=== PATIENT | female | born 1995 | race Caucasian/White ===

== ENCOUNTER 2017-04-25 20:04 | Inpatient (IN) | payer OTHER ==
[~2017-04-25] VITALS: Ht 157.5 cm; Wt 89.1 kg
[2017-04-25] MEDS ORDERED: AMPICILLIN 2 GM/NS (PMX) 100 ML ONE (20:11)
[2017-04-25] MEDS ORDERED: LACTATED RINGER'S 1,000 ML IV SCH (20:19)
[2017-04-25] MEDS ORDERED: LACTATED RINGER'S 1,000 ML IV PRN (20:22)
[2017-04-25] MEDS ORDERED: METHYLERGONOVINE 0.2 MG INJ IM PRN (20:30)
[2017-04-25] MEDS ORDERED: OXYTOCIN 30 UNITS/LR 500 ML IV PRN (20:30)
[2017-04-25] MEDS ORDERED: BUTORPHANOL 2 MG INJ IV PRN ×2 (20:30)
[2017-04-25] MEDS ORDERED: OXYTOCIN 30 UNITS/LR 500 ML IV SCH ×2 (20:30)
[2017-04-25] MEDS ORDERED: LIDOCAINE 1% (MPF) 30 ML INJ INJ PRN (20:30)
[2017-04-25] MEDS ORDERED: CARBOPROST 250 MCG INJ IM PRN (20:30)
[2017-04-25] MEDS ORDERED: HYDROCODONE/APAP (5/325) TAB PO PRN (20:30)
[2017-04-25] MEDS ORDERED: IBUPROFEN 600 MG TAB PO PRN (20:30)
[2017-04-25] MEDS ORDERED: MISOPROSTOL 200 MCG TAB PR PRN (20:30)
[2017-04-25 20:32] LABS: BASOPHILS % 0.3 % (0.0-2.0); EOSINOPHILS # 0.1 10^3/ul (0.0-0.5); EOSINOPHILS % 1.1 % (0.0-7.0); HEMATOCRIT 36.9 % (37.0-47.0); LYMPHOCYTES % 32.1 % (15.0-51.0); MEAN CORPUSCULAR HEMOGLOBIN 32.1 pg (29.0-33.0); MEAN CORPUSCULAR HGB CONC 35.2 g/dl (32.0-37.0); MEAN CORPUSCULAR VOLUME 91.1 fl (82.0-101.0); MEAN PLATELET VOLUME 11.1 fl (7.4-10.4); MONOCYTE # 0.5 10^3/ul (0.3-0.9); MONOCYTES % 5.9 % (0.0-11.0); NEUTROPHIL # 5.5 10^3/ul (1.6-7.5); NEUTROPHILS % 59.6 % (39.0-77.0); PLATELET COUNT 178 10^3/UL (140-415); RED BLOOD COUNT 4.05 10^6/ul (4.20-5.40); RED CELL DISTRIBUTION WIDTH 13.4 % (11.5-14.5); WHITE BLOOD COUNT 9.2 10^3/ul (4.8-10.8)
[2017-04-25 20:46] LABS: INR 0.89; PT RATIO 0.9
[2017-04-25 20:47] LABS: PARTIAL THROMBOPLASTIN TIME 27.7 Sec (25.0-35.0)
[2017-04-25 20:56] LABS: ALANINE AMINOTRANSFERASE 28 IU/L (13-69); ALBUMIN 3.8 g/dl (3.3-4.9); ALBUMIN/GLOBULIN RATIO 1.05; ALKALINE PHOSPHATASE 234 IU/L (42-121); ANION GAP 15 (8-16); ASPARTATE AMINO TRANSFERASE 24 IU/L (15-46); BILIRUBIN,INDIRECT 0.3 mg/dl (0-1.1); BILIRUBIN,TOTAL 0.3 mg/dl (0.2-1.3); BLOOD UREA NITROGEN 11 mg/dl (7-20); CALCIUM 9.7 mg/dl (8.4-10.2); CARBON DIOXIDE 23 mmol/L (21-31); CHLORIDE 105 mmol/L (97-110); CREATININE 0.67 mg/dl (0.44-1.00); GLUCOSE 101 mg/dl (70-220); POTASSIUM 3.7 mmol/L (3.5-5.1); SODIUM 139 mmol/L (135-144); TOTAL PROTEIN 7.4 g/dl (6.1-8.1)
[2017-04-25] MEDS ORDERED: AMPICILLIN 2 GM/NS (PMX) 100 ML IVPB ONE (21:00)
[2017-04-25 21:25] VITALS: Ht 157.5 cm; Wt 89.1 kg
[2017-04-25] MEDS ORDERED: PREN-93 PO (21:26)
--- NOTE | 2017-04-25 22:52 | HP ---
Date/Time of Note Date/Time of Note DATE: 04/25/17 TIME: 22:47 OB - History Hx of Present Free Text/Dictation 21yo without significant past medical or surgical history presents at 39 +5 with painful contractions since 1800. Vaginal bleeding started after contractions. Pt reports normal FM and denies LOF. care with Dr. Shelley. Pt reports care has been without complications. Estimated Due Date: Apr 27, 2017 : 4 Para: 1 Therapeutic : 2 Care: Good Care Obstetrical Complications: None Medical Complications: None Past Family/Social History * Past Medical, Surgical, Family and Obstetric Histories reviewed from chart. Blood Type: B+ Rubella: immune RPR/VDRL: Negative GBS Status: Positive (04/04/17) HBsAG: Negative OB Admission Exam Physical Exam HEENT: WNL Heart: Rhythm Normal Lungs: Clear Abdomen: WNL (gravid) Extremities: Normal Cervical Dilatation: 9cm Effacement: Other (90%) Station: 0 Membranes: Intact Heart Rate: 140's Accelerations: Accelerations Present Decelerations: No Decelerations Varibility: Moderate Contractions on Admission: < 5 Minutes Apart Intensity: Firm Last 72 hours Lab Results CBC & BMP 04/25/17 20:15 Liver Function Test 04/25/17 20:15 Alanine Aminotransferase (ALT/SGPT) 28 Albumin 3.8 Alkaline Phosphatase 234 H Aspartate Amino Transf (AST/SGOT) 24 Direct Bilirubin 0.00 Total Protein 7.4 OB Assessment/Plan Reason for admission: active labor Plan: Expectant Management Other plan: GBS ppx indicated Anticipate TISHA MARTINEZ MD Apr 25, 2017 22:52
--- NOTE | 2017-04-25 22:59 | LDN ---
Date/Time of Note Date/Time of Note DATE: 04/25/17 TIME: 22:52 Delivery Summary Pt pushed without anesthesia to a precipitous of a liveborn male weighing 3330g with Apgars of 9 and 9 at 1 and 5 min respectively. Easy delivery of the head through thin meconium, followed by anterior left shoulder, posterior shoulder and the remainder of the body. Vigorous and crying placed on mother's abdomen and bulb suctioned. Following an intentional delay, the cord was doubly clamped and cut. Standard Pitocin was administered and cord blood was collected. An intact 3VC delivered shortly thereafter. Fundal massage revealed a firm fundus. Inspection of the vagina and perineum revealed a 1st degree perineal laceration and R labial laceration repaired under local anesthesia with 3-0 Vicryl and hemostasis achieved. Mother and infant recovering well in LDR. Of note, [employer] was initially called for delivery, however pt pushed for >1hr with no progress and thus plan was for epidural prior to delivery. Pt then precipitously delivered prior to [employer] being called back to the patient's room. On arrival of RN, vigorous, crying with good color. Weeks of Gestation 39+5 Placenta Delivered: Spontaneously Meconium: Light (s/p AROM) Episiotomy: No Perineal laceration: 1 Laceration repair: Yes, 3-0 Vicryl Anesthesia type: Local Sponge & Needle done & correct: Yes All needle counts correct: Yes Any foreign bodies felt in the: No Problems: Infant Delivery Information Sex Infant Sex: male Apgars 1 Minute: 9 5 Minute: 9 Suctioning Nose & mouth suctioned at gloria: No Delee suction performed: No Umbilical Cord Umbilical cord with: 3 Vessels Cord presentations: no nuchal cord Cord Blood was obtained: Yes Mother & Baby Disposition Disposition Mom & Baby to Maternity; Good: Yes Baby to NICU: No TISHA MARTINEZ MD Apr 25, 2017 22:59
[2017-04-26] VITALS (7 sets, daily range): BP systolic 101–132; BP diastolic 55–77; PULSE 58–74; RESP 18–20
[2017-04-26] MEDS ORDERED: AMPICILLIN 1 GM/NS (PMX) 50 ML IVPB SCH (01:00)
[2017-04-26] MEDS ORDERED: LACTATED RINGER'S 1,000 ML IV* SCH (01:09)
[2017-04-26] MEDS ORDERED: DIBUCAINE 1% 30 GM OINT PR PRN (01:30)
[2017-04-26] MEDS ORDERED: WITCH HAZEL/GLYCERIN PAD PR PRN (01:30)
[2017-04-26] MEDS ORDERED: SENNA/DOCUSATE NA (8.6MG/50MG) TAB PO PRN (01:30)
[2017-04-26] MEDS ORDERED: BENZOCAINE 20% 56 ML SPRAY TOP PRN (01:30)
[2017-04-26] MEDS ORDERED: LANOLIN 7 GM TUBE TOP PRN (01:30)
[2017-04-26] MEDS ORDERED: ACETAMINOPHEN 325 MG TAB PO PRN (01:30)
[2017-04-26] MEDS ORDERED: CARBOPROST 250 MCG INJ IM PRN (01:30)
[2017-04-26] MEDS ORDERED: DIPHENHYDRAMINE 50 MG INJ IV PRN (01:30)
[2017-04-26] MEDS ORDERED: OXYTOCIN 30 UNITS/LR 500 ML IV PRN (01:30)
[2017-04-26] MEDS ORDERED: MISOPROSTOL 200 MCG TAB PR PRN (01:30)
[2017-04-26] MEDS ORDERED: ONDANSETRON 4 MG INJ IV PRN (01:30)
[2017-04-26] MEDS ORDERED: METHYLERGONOVINE 0.2 MG INJ IM PRN (01:30)
--- NOTE | 2017-04-26 03:06 | TRIAGE ---
OB Triage Datetime Report Generated by CPN: 04/26/2017 03:06 Datetime: 04/26/2017 00:05 Stage of : Recovery Pain Assessment Pain Scale: 7 Pain Presence: Intermittent Pain Type: Cramping Pain Location: Abdomen; Back Pain Goal: 4 Datetime: 04/25/2017 23:44 Stage of : Recovery Pain Assessment Pain Scale: 7 Pain Presence: Intermittent Pain Type: Cramping Pain Location: Abdomen; Back Pain Goal: 4 Datetime: 04/25/2017 23:29 Stage of : Recovery Pain Assessment Pain Scale: 7 Pain Presence: Intermittent Pain Type: Cramping Pain Location: Abdomen; Back Pain Goal: 4 Datetime: 04/25/2017 23:14 Stage of : Recovery Pain Assessment Pain Scale: 7 Pain Presence: Intermittent Pain Type: Cramping Pain Location: Abdomen; Back Pain Goal: 4 Pain Relief Measures: Pain Medication Given (Annotations: MOTRIN 600 MG PO AT 2316, APPLE JUICE AN D WATER PROVIDED) Datetime: 04/25/2017 22:59 Stage of : Recovery Pain Assessment Pain Scale: 7 Pain Presence: Intermittent Pain Type: Cramping Pain Location: Abdomen; Back Pain Goal: 4 Pain Assessment Comments: PT. WANTS PAIN MED FOR CRAMPING NOW, BUT NOT TOO STRONG AGREED ON MOTRIN 600MG Datetime: 04/25/2017 22:51 Time of Arrival: 04/25/2017 20:05 EGA: 39.5 Datetime: 04/25/2017 22:44 Stage of : Recovery Pain Assessment Pain Scale: 7 Pain Presence: Intermittent Pain Type: Cramping Pain Location: Abdomen; Back Pain Goal: 4 Datetime: 04/25/2017 22:30 Stage of : Recovery Assessment Type: Admission Assessment Vaginal Bleeding: None Maternal Assessment Level of Consciousness: Fully Conscious Headache: Denies Blurred Vision: No Respiratory Effort: Unlabored; Regular Rhythm; Equal Expansion Nausea/Vomiting: Denies RUQ Epigastric Pain: Denies Lower Extremities Edema: None Upper Extremities Edema: None Facial Edema: None Fall Risk Assessment History of Falling: (0) No Secondary Diagnosis: (0) No Ambulatory Aid: (0) Bedrest/Nurse Assist Gait: (0) Normal/Bedrest/Immobile Mental Status: (0) Oriented to Own Ability Pain Assessment Pain Scale: 7 Pain Presence: Intermittent Pain Type: Cramping Pain Location: Abdomen; Back Pain Goal: 4 Datetime: 04/25/2017 22:14 Stage of : Recovery Temperature Route: Oral Datetime: 04/25/2017 21:45 Stage of : Labor Labor Evaluation Frequency: 2 Monitor Mode: External Duration (sec)2399: 60-90 Quality: Strong Pattern: Normal: <= 5 Contractions in 10 Minutes Resting Tone [place]: Relaxed Heart Rate FHR Baseline Rate: 140 Monitor Mode: External US Variability: Moderate 6-25 bpm Accelerations: 15X15 Decelerations: Early Category: Category I Pain Assessment Pain Scale: 10 Pain Presence: Intermittent Pain Type: Sharp; Pressure Pain Location: Abdomen; Back Pain Goal: 5 Pain Relief Measures: Comfort Measures Datetime: 04/25/2017 21:18 Membrane Status: Intact Datetime: 04/25/2017 21:00 Stage of : Labor Labor Evaluation Frequency: 2-3 Monitor Mode: External Duration (sec)2399: 60-90 Quality: Strong Pattern: Normal: <= 5 Contractions in 10 Minutes Resting Tone [place]: Relaxed Heart Rate FHR Baseline Rate: 150 Monitor Mode: External US Variability: Moderate 6-25 bpm Accelerations: 15X15 Decelerations: Early Category: Category I Pain Assessment Pain Scale: 9 Pain Presence: Intermittent Pain Type: Sharp; Pressure Pain Location: Abdomen; Back Pain Goal: 5 Pain Relief Measures: Comfort Measures Datetime: 04/25/2017 20:45 Stage of : Labor Labor Evaluation Frequency: 2-3 Monitor Mode: External Duration (sec)2399: 60-90 Quality: Strong Pattern: Normal: <= 5 Contractions in 10 Minutes Resting Tone [place]: Relaxed Heart Rate FHR Baseline Rate: 150 Monitor Mode: External US Variability: Moderate 6-25 bpm Accelerations: 15X15 Decelerations: Early Category: Category I Pain Assessment Pain Scale: 9 Pain Presence: Intermittent Pain Type: Sharp; Pressure Pain Location: Abdomen; Back Pain Goal: 5 Pain Relief Measures: Comfort Measures Datetime: 04/25/2017 20:30 Membrane Status: Ruptured Membranes Rupture Method: Artificial Amniotic Fluid Color: Light Meconium Amniotic Fluid Amount: Moderate Datetime: 04/25/2017 20:18 EGA: 39.5 Membranes Ruptured Date/Time: 04/25/2017 20:30 Membranes Rupture Method: Artificial Amniotic Fluid Color: Light Meconium Amniotic Fluid Amount: Moderate Amniotic Fluid Odor: None Presentation 'A': Cephalic Datetime: 04/25/2017 20:13 Vaginal Exam Dilatation (cms): 9.5 Effacement (%): 90 Station: 0 Exam By: Robonson Datetime: 04/25/2017 20:09 Stage of : Labor Datetime: 04/25/2017 20:00 Stage of : OB Triage Time of Arrival: 04/25/2017 19:50 Arrived By: Wheelchair Arrived From: Home Chief Complaint: CONTRACTIONS Movement: Present Contractions: Denies/Absent Rupture of Membranes: Denies Vaginal Bleeding: None Vaginal Discharge: Denies Recent Sexual Intercouse: Denies Abdominal Trauma: Not Applicable Time Provider Notified: 04/26/2017 20:05 Provider Notified: DR MARTINEZ Initial Plan: CALL SHEN FRANCOIS Maternal Assessment Level of Consciousness: Fully Conscious DTR's/Clonus: DTRs 2+; No Clonus Headache: Denies Blurred Vision: No Respiratory Effort: Unlabored; Regular Rhythm; Equal Expansion Breath Sounds, Left: Clear and Equal Breath Sounds, Right: Clear and Equal Nausea/Vomiting: Denies RUQ Epigastric Pain: Denies Lower Extremities Edema: None Degree: None Upper Extremities Edema: None Degree: None Facial Edema: None Temperature Route: Oral Fall Risk Assessment History of Falling: (0) No Secondary Diagnosis: (0) No Ambulatory Aid: (0) Bedrest/Nurse Assist IV Therapy: (0) No Gait: (0) Normal/Bedrest/Immobile Mental Status: (0) Oriented to Own Ability Fall Score: 0 Fall Risk Score Definition: No Risk: No action required Pain Assessment Pain Scale: 9 Pain Presence: Intermittent Pain Type: Contraction Pain Location: Abdomen; Back
[2017-04-26] MEDS: IBUPROFEN 600 MG TAB PO SCH ×3 (06:13→17:39)
[2017-04-26 11:38] LABS: BASOPHILS % 0.2 % (0.0-2.0); EOSINOPHILS # 0.1 10^3/ul (0.0-0.5); EOSINOPHILS % 0.7 % (0.0-7.0); HEMATOCRIT 33.5 % (37.0-47.0); HEMOGLOBIN 11.4 g/dl (12.0-16.0); LYMPHOCYTES # 2.9 10^3/ul (0.8-2.9); LYMPHOCYTES % 24.2 % (15.0-51.0); MEAN CORPUSCULAR HEMOGLOBIN 31.8 pg (29.0-33.0); MEAN CORPUSCULAR VOLUME 93.6 fl (82.0-101.0); MEAN PLATELET VOLUME 11.6 fl (7.4-10.4); MONOCYTE # 0.8 10^3/ul (0.3-0.9); MONOCYTES % 6.4 % (0.0-11.0); NEUTROPHIL # 8.2 10^3/ul (1.6-7.5); NEUTROPHILS % 67.8 % (39.0-77.0); PLATELET COUNT 136 10^3/UL (140-415); RED BLOOD COUNT 3.58 10^6/ul (4.20-5.40); RED CELL DISTRIBUTION WIDTH 13.6 % (11.5-14.5); WHITE BLOOD COUNT 12.1 10^3/ul (4.8-10.8)
[2017-04-26] MEDS ORDERED: INFLUENZA VIRUS VACCINE 0.5 ML SYG IM* ONE (13:00)
--- NOTE | 2017-04-26 18:18 | PN ---
Date/Time of Note Date/Time of Note DATE: 04/26/17 TIME: 18:11 OB Subjective Subjective Subjective Denies any complaint, Ambulating, vaginal bleeding moderate. urinated without any complaint, OB Objective Objective Objective GA: A&O, NAD Abdomen, Soft, Non tender Fundus at the level of umbilicus, non tender Breasts; No fullness, no evidence of fissure, or mastitis.no engorgement Extremities: no calf tenderness, no click, no edema Hematology - 72 Hrs Test 04/25/17 20:15 04/26/17 10:32 White Blood Count 9.210^3/ul (4.8-10.8) 12.110^3/ul (4.8-10.8) #H Red Blood Count 4.0510^6/ul (4.20-5.40) L 3.5810^6/ul (4.20-5.40) L Hemoglobin 13.0g/dl (12.0-16.0) 11.4g/dl (12.0-16.0) L Hematocrit 36.9% (37.0-47.0) L 33.5% (37.0-47.0) L Mean Corpuscular Volume 91.1fl (82.0-101.0) 93.6fl (82.0-101.0) Mean Corpuscular Hemoglobin 32.1pg (29.0-33.0) 31.8pg (29.0-33.0) Mean Corpuscular Hemoglobin Concent 35.2g/dl (32.0-37.0) 34.0g/dl (32.0-37.0) Red Cell Distribution Width 13.4% (11.5-14.5) 13.6% (11.5-14.5) Platelet Count 33633^3/UL (140-415) 74732^3/UL (140-415) #L Mean Platelet Volume 11.1fl (7.4-10.4) H 11.6fl (7.4-10.4) H Neutrophils % 59.6% (39.0-77.0) 67.8% (39.0-77.0) Lymphocytes % 32.1% (15.0-51.0) 24.2% (15.0-51.0) Monocytes % 5.9% (0.0-11.0) 6.4% (0.0-11.0) Eosinophils % 1.1% (0.0-7.0) 0.7% (0.0-7.0) Basophils % 0.3% (0.0-2.0) 0.2% (0.0-2.0) Nucleated Red Blood Cells % 0.0/100WBC (0.0-0.0) 0.0/100WBC (0.0-0.0) Neutrophils # 5.510^3/ul (1.6-7.5) 8.210^3/ul (1.6-7.5) H Lymphocytes # 3.010^3/ul (0.8-2.9) H 2.910^3/ul (0.8-2.9) Monocytes # 0.510^3/ul (0.3-0.9) 0.810^3/ul (0.3-0.9) Eosinophils # 0.110^3/ul (0.0-0.5) 0.110^3/ul (0.0-0.5) Basophils # 0.010^3/ul (0.0-0.1) 0.010^3/ul (0.0-0.1) Nucleated Red Blood Cells # 0.010^3/ul (0.0-0.0) 0.010^3/ul (0.0-0.0) Chemistry Test 04/25/17 20:15 Sodium Level 139mmol/L (135-144) Potassium Level 3.7mmol/L (3.5-5.1) Chloride Level 105mmol/L (97-110) Carbon Dioxide Level 23mmol/L (21-31) Anion Gap 15 (8-16) Blood Urea Nitrogen 11mg/dl (7-20) Creatinine 0.67mg/dl (0.44-1.00) Glucose Level 101mg/dl (70-220) Calcium Level 9.7mg/dl (8.4-10.2) Total Bilirubin 0.3mg/dl (0.2-1.3) Direct Bilirubin 0.00mg/dl (0.00-0.20) Indirect Bilirubin 0.3mg/dl (0-1.1) Aspartate Amino Transf (AST/SGOT) 24IU/L (15-46) Alanine Aminotransferase (ALT/SGPT) 28IU/L (13-69) Alkaline Phosphatase 234IU/L (42-121) H Total Protein 7.4g/dl (6.1-8.1) Albumin 3.8g/dl (3.3-4.9) Globulin 3.60g/dl (1.3-3.2) H Albumin/Globulin Ratio 1.05 OB Assessment/Plan Other Assessment: s/p PPD #1 Lats PNC UDS negative Doing well Routine post care Anticipate DC home RHIANNON Hooper MD Apr 26, 2017 18:18
[2017-04-27] MEDS: IBUPROFEN 600 MG TAB PO SCH ×4 (00:07→17:18)
[2017-04-27 04:00] VITALS: BP 111/60; PULSE 62; RESP 19
[2017-04-27 07:20] VITALS: BP 115/66; PULSE 71; RESP 19
[2017-04-27] MEDS ORDERED: DIPHTH/TET/ACEL PERTUSS (ADULT) 0.5 ML VIAL IM* ONE (09:00)
--- NOTE | 2017-04-27 10:34 | DS ---
Date/Time of Note Date/Time of Note DATE: 04/27/17 TIME: 10:27 Obstetrical Discharge Record Final Diagnosis Final Diagnosis: Term delivered Vaginal Delivery Obstetrical Delivery: Spontaneous, Laceration, Repaired (first degree laceration repaired by 3 0 chromic .) Complications Rupture of Membranes: No Condition on Discharge Physical Assessment Last Vitals: Laboratory Tests Test 04/26/17 10:32 White Blood Count 12.110^3/ul Red Blood Count 3.5810^6/ul Hemoglobin 11.4g/dl Hematocrit 33.5% Mean Corpuscular Volume 93.6fl Mean Corpuscular Hemoglobin 31.8pg Mean Corpuscular Hemoglobin Concent 34.0g/dl Red Cell Distribution Width 13.6% Platelet Count 33732^3/UL Mean Platelet Volume 11.6fl Neutrophils % 67.8% Lymphocytes % 24.2% Monocytes % 6.4% Eosinophils % 0.7% Basophils % 0.2% Nucleated Red Blood Cells % 0.0/100WBC Neutrophils # 8.210^3/ul Lymphocytes # 2.910^3/ul Monocytes # 0.810^3/ul Eosinophils # 0.110^3/ul Basophils # 0.010^3/ul Nucleated Red Blood Cells # 0.010^3/ul Current Medications Medications (Trade) Dose Ordered Sig/Steffanie Route PRN Reason Start Time Stop Time Status Last Admin Dose Admin Ampicillin 100 ml @ ud STK-MED ONCE .ROUTE 04/25/17 20:11 04/25/17 20:12 DC Lactated Ringer's (Lr) 1,000 ml @ 125 mls/hr Q8H IV 04/25/17 20:19 04/26/17 01:16 DC 04/25/17 20:36 Butorphanol Tartrate (Stadol) 1 mg Q2H PRN IV PAIN 04/25/17 20:30 04/26/17 01:16 DC Butorphanol Tartrate (Stadol) 2 mg Q2H PRN IV PAIN 04/25/17 20:30 04/26/17 01:16 DC Lidocaine 30 ml 30 ml ONCE PRN INJ EPISIOTOMY/TEARING 04/25/17 20:30 04/26/17 01:16 DC Oxytocin/Lactated Ringer's 500 ml @ 125 mls/hr ONCE -MAY REPEAT X1 IV 04/25/17 20:30 04/26/17 01:16 DC 04/25/17 22:30 Oxytocin/Lactated Ringer's 500 ml @ 125 mls/hr ONCE IV 04/25/17 20:30 04/26/17 02:45 Ibuprofen (Motrin) 600 mg ONCE PRN PO Mild Pain (Pain Score 1-3) 04/25/17 20:30 04/26/17 01:16 DC 04/25/17 23:16 Acetaminophen/ Hydrocodone Bitart 2 tab 2 tab ONCE PRN PO Moderate to Severe Pain (4-10) 04/25/17 20:30 04/26/17 01:16 DC Lactated Ringer's 1,000 ml @ 2,000 mls/hr Q30M PRN IV PRE-EPIDURAL BOLUS 04/25/17 20:22 04/26/17 01:16 DC Oxytocin/Lactated Ringer's 500 ml @ 0 mls/hr ONCE PRN IV For Hemorrhage Management 04/25/17 20:30 04/26/17 01:16 DC Methylergonovine Maleate (Methergine) 0.2 mg ONCE PRN IM VAGINAL BLEEDING 04/25/17 20:30 04/26/17 01:16 DC 04/25/17 23:42 Carboprost Tromethamine (Hemabate) 250 mcg ONCE PRN IM VAGINAL BLEEDING 04/25/17 20:30 04/26/17 01:16 DC Misoprostol 1000 mcg 1,[address] VAGINAL BLEEDING 04/25/17 20:30 04/26/17 01:16 DC Ampicillin 100 ml @ 100 mls/hr ONCE ONCE IVPB 04/25/17 21:00 04/25/17 21:59 DC 04/25/17 20:46 Ampicillin 50 ml @ 100 mls/hr Q4 IVPB 04/26/17 01:00 04/26/17 01:15 DC Lactated Ringer's (Lr) 1,000 ml @ 125 mls/hr Q8H IV* 04/26/17 01:09 04/26/17 10:38 DC 04/26/17 06:28 Ibuprofen (Motrin) 600 mg Q6 PO 04/26/17 06:00 04/27/17 05:29 Ondansetron HCl (Zofran Inj) 4 mg Q6H PRN IV NAUSEA AND/OR VOMITING 04/26/17 01:30 Diphenhydramine HCl (Benadryl) 25 mg Q6H PRN IV PRURITUS 04/26/17 01:30 Senna/Docusate Sodium (Senokot-S) 1 tab BID PRN PO CONSTIPATION 04/26/17 01:30 Benzocaine (Dermoplast Joice) 1 spray BEDSIDE MEDICATION PRN TOP HEMORRHOID/EPISIOTMY PAIN 04/26/17 01:30 04/26/17 02:44 Dibucaine (Nupercainal) [address] applic [address] MEDICATION PRN CT HEMORRHOID/EPISIOTMY PAIN 04/26/17 01:30 04/26/17 02:44 Lanolin (Muw-H-Qipccy) 1 applic BEDSIDE MEDICATION PRN TOP BEDSIDE FOR BIANKA TO NIPPLES 04/26/17 01:30 04/26/17 02:44 Diphtheria/ Tetanus/Acell Pertussis (Adacel) 0.5 ml ONCE ONCE IM* 04/27/17 09:00 04/27/17 09:01 DC Acetaminophen 650 mg 650 mg Q4H PRN PO ELEVATED TEMPERATURE 04/26/17 01:30 Oxytocin/Lactated Ringer's 500 ml @ 0 mls/hr ONCE PRN IV For Hemorrhage Management 04/26/17 01:30 Methylergonovine Maleate (Methergine) 0.2 mg ONCE PRN IM VAGINAL BLEEDING 04/26/17 01:30 Carboprost Tromethamine (Hemabate) 250 mcg ONCE PRN IM VAGINAL BLEEDING 04/26/17 01:30 Misoprostol (Cytotec) 1,[address] VAGINAL BLEEDING 04/26/17 01:30 Witch Kandis/ Glycerin (Tucks Pads) [address] HEMORROID PAIN/ITCHING 04/26/17 01:30 04/26/17 02:44 Influenza Virus Vaccine (Fluzone) 0.5 ml ONCE ONCE IM* 04/27/17 12:00 04/27/17 12:00 DC Influenza Virus Vaccine (Fluzone) 0.5 ml ONCE ONCE IM* 04/26/17 13:00 04/26/17 13:01 DC 04/26/17 12:56 The will stay today most likely being discharged tomorrow she is under light treatment due to mild jaundice Voiding: Yes Bowel Movement: Yes Breast: Soft, non-tender Fundus: Firm Abdomen and Incision: Abdomen is soft fundus is firm Episiotomy: Perineal laceration is healing well Calf Tenderness: No Patient Condition: Good DIANELYS HERNANDEZ MD Apr 27, 2017 10:34
[2017-04-27] MEDS ORDERED: INFLUENZA VIRUS VACCINE 0.5 ML SYG IM* ONE (12:00)
[2017-04-27 16:00] VITALS: BP 113/57; PULSE 83; RESP 18
== END 2017-04-27 18:42 | disposition home or self-care (01) | DRG 775 ==
LOC: OBT 20:04 → L-D 20:05 → PP1 04-26 00:24
PROVIDERS: ADMIT Obstetrics & Gynecology; ATTEND Obstetrics & Gynecology
PROC: 10E0XZZ Delivery of Products of Conception, External Approach (ICD-10-PCS; principal; 2017-04-25)
PROC: 0HQ9XZZ Repair Perineum Skin, External Approach (ICD-10-PCS; 2017-04-25)
PROC: 3E0P3VZ Introduction of Hormone into Female Reproductive, Percutaneous Approach (ICD-10-PCS; 2017-04-25)
DX: O70.0 First degree perineal laceration during delivery (principal); Z37.0 Single live birth; Z3A.39 39 weeks gestation of pregnancy
CPT/HCPCS: 80053; 85025; 85610; 85730; 86592; 86900; 86901; 87340; 90686; 90715; 99464; G0463; J0290; J2210; J2590; J7120